=== PATIENT | male | born 1995 | race Hispanic/Latino ===

== ENCOUNTER 2018-03-27 22:27 | Emergency (ER) | payer OTHER ==
[2018-03-27 23:03] VITALS: BP 109/68; PULSE 68; RESP 20; TEMP 98; O2SAT 98
--- NOTE | 2018-03-28 01:00 | C.PDOC ---
History Of Present Illness 23 year old male presents to the ED for evaluation of right thumb pain which began earlier today. Patient states he was wrestling when his thumb got caught onto something, causing it to be hyperextended. Patient is complaining of pain to his right thumb and swelling to the thenar eminence. He denies extremity numbness/weakness or any other injuries at this time. Time Seen by Provider: 03/27/18 23:05 Chief Complaint (Nursing): Upper Extremity Problem/Injury History Per: Patient History/Exam Limitations: no limitations Onset/Duration Of Symptoms: Hrs Current Symptoms Are (Timing): Still Present Quality: "Pain" Additional History Per: Patient Past Medical History Reviewed: Historical Data, Nursing Documentation, Vital Signs Vital Signs: Last Vital Signs Temp 98 F 03/27/18 22:59 Pulse 68 03/27/18 22:59 Resp 20 03/27/18 22:59 BP 109/68 03/27/18 22:59 Pulse Ox 98 03/27/18 22:59 - Medical History PMH: No Chronic Diseases Surgical History: No Surg Hx Family History: States: Unknown Family Hx - Social History Hx Alcohol Use: Yes Hx Substance Use: No - Immunization History Hx Tetanus Toxoid Vaccination: No Hx Influenza Vaccination: No Hx Pneumococcal Vaccination: No Review Of Systems Constitutional: Negative for: Fever, Chills Musculoskeletal: Positive for: Hand Pain (right), Other (right thumb pain ) Skin: Negative for: Bruising Neurological: Negative for: Weakness, Numbness Physical Exam - Physical Exam Appears: Non-toxic, No Acute Distress Skin: Warm, Dry Head: Atraumatic, Normacephalic Eye(s): bilateral: Normal Inspection Extremity: Capillary Refill (less than 2 seconds ), Swelling (over right thenar eminence), Other (no bony tenderness ) Pulses: Left Radial: Normal, Right Radial: Normal Neurological/Psych: Oriented x3, Normal Speech, Normal Cognition, Normal Sensation ED Course And Treatment O2 Sat by Pulse Oximetry: 98 (on RA) Pulse Ox Interpretation: Normal Orthopedic Time Performed: 12:40 Time Out: Side verified, Site verified Procedure: Splint Type: Thumb spica Location: Right Consent obtained: Verbal Performed by: Mid-level Provider (done by cp, checked by me) Diagnosis: Sprain Joints: MCP Joint Capillary refill: Normal Distal Sensation: Normal Distal Motor Function: Normal Capillary Refill: Normal Compartment: Normal Medical Decision Making Medical Decision Making: Impression: 23 year old male with right thumb pain Plan: * right hand thumb XR * Motrin PO * cold compress * reassess and disposition Progress: Right hand thumb XR ordered, shows no evidence of fracture. Motrin PO given. Cold compress applied. Thumb spica splint applied by CP and was checked by me. On reassessment, patient is resting comfortably, showing no signs of distress and reports an improvement in his pain. Patient is stable for discharge. He is advised to follow up with hand specialist within 1-2 days for further evaluation. Disposition Counseled Patient/Family Regarding: Studies Performed, Diagnosis, Need For Followup, Rx Given - Disposition Referrals: Brianda Vaughn MD [Staff Provider] - Lana Cash MD [Staff Provider] - Disposition: HOME/ ROUTINE Disposition Time: 00:58 Condition: GOOD Additional Instructions: Wear splint until seen by hand specialist. Keep clean and dry. Apply cold compresses to palm of hand over splint for 20 minutes at a time every 2-3 hours. Take Tylenol or Motrin for pain. Instructions: Sprained Thumb (DC) Forms: [facility] ([place]vian), General Discharge Instructions - Clinical Impression Clinical Impression: Gamehoward's thumb, right - PA / WELT [employer]ER / Resident Statement MD/DO has reviewed & agrees with the documentation as recorded. - Scribe Statement The provider has reviewed the documentation as recorded by the Scribe (Darleen Higuera) All medical record entries made by the Scribe were at my direction and personally dictated by me. I have reviewed the chart and agree that the record accurately reflects my personal performance of the history, physical exam, medical decision making, and the department course for this patient. I have also personally directed, reviewed, and agree with the discharge instructions and disposition.
--- NOTE | 2018-03-28 07:37 | RAD ---
Date of service: 03/27/2018 PROCEDURE: Right Thumb radiographs. HISTORY: hyperextension, swelling thenar eminence COMPARISON: None. TECHNIQUE: AP radiograph of the right hand, as well as spot oblique and lateral images of thumb were obtained. FINDINGS: RIGHT THUMB: No acute fracture or destructive bony lesion identified at the right thumb. Remainder of the right hand (as seen on the AP view) grossly unremarkable. JOINTS: Normal. SOFT TISSUES: Questionable dorsal distal thumb soft tissue edema noted OTHER FINDINGS: None. IMPRESSION: No acute fracture dislocation right thumb. Questionable distal dorsal thumb soft tissue edema noted. No retained radiodense foreign body or emphysematous soft tissue changes.
== END 2018-03-28 01:03 | disposition home or self-care (01) ==
LOC: C.ER 22:27
DX: S63.641A Sprain of metacarpophalangeal joint of right thumb, initial encounter (principal); X50.0XXA Overexertion from strenuous movement or load, initial encounter; Y93.72 Activity, wrestling